=== PATIENT | female | born 1960 | race Caucasian/White ===

== ENCOUNTER 2020-06-25 10:34 | Emergency (ER) | payer BC ==
[2020-06-25] MEDS ORDERED: Sodium Chloride 0.9% 10 ML Syringe FLUSH PRN (10:44)
[2020-06-25] MEDS ORDERED: Sodium Chloride 0.9% 2.5 ML Syringe FLUSH PRN (10:44)
[2020-06-25] MEDS ORDERED: Aspirin 81 MG Tab.Chew PO ONE (10:50)
--- NOTE | 2020-06-25 10:52 | EDM.PDOC ---
ED HPI GENERAL MEDICAL PROBLEM - General Chief Complaint: Chest Pain Stated Complaint: CHEST PAIN Time Seen by Provider: 06/25/20 10:44 Source of Information: Reports: Patient History Limitations: Reports: No Limitations - History of Present Illness INITIAL COMMENTS - FREE TEXT/NARRATIVE: 59-year-old female past medical history migraine headaches presents for chest pain. Patient notes that over the last couple of months that she has felt generalized fatigue, and on and off migraine headache. She has had this worked up by her primary including a negative MRI of the head. 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 The pain is constant and mildly worse with deep breathing. No associated shortness of breath, nausea, vomiting, abdominal pain, lower extremity pain, swelling, redness. Family history of father who at 42 from cardiac condition. No personal history of cardiac problems. Had a negative stress test but that was over a year ago. chest Pain Score (Numeric/FACES): 8 - Related Data Allergies Allergy/AdvReac Type Severity Reaction Status Date / Time Dairy Products Allergy Abdominal Verified 06/25/20 11:06 Pain egg Allergy Abdominal Verified 06/25/20 11:06 Pain gluten Allergy Abdominal Verified 06/25/20 11:06 Pain legumes Allergy Abdominal Verified 06/25/20 11:06 Pain soy Allergy Abdominal Verified 06/25/20 11:06 Pain sunflower seed Allergy Abdominal Verified 06/25/20 11:06 Pain wheat Allergy Abdominal Verified 06/25/20 11:06 Pain pain meds/narcotics/muscle Allergy Hives Uncoded 06/25/20 11:06 reaxants Home Meds: Home Meds Biodentical Hormones 1 tab VAG DAILY 06/25/20 [History] Compound Thyroid 06/25/20 [History] Cyanocobalamin (Vitamin B12) [Vitamin B12] 0 mcg IM ASDIRECTED 06/25/20 [History] ED ROS GENERAL - Review of Systems Review Of Systems: Comprehensive ROS is negative, except as noted in HPI. ED EXAM, GENERAL - Physical Exam Exam: See Below Exam Limited By: No Limitations General Appearance: Alert, WD/WN, No Apparent Distress Nose: Normal Inspection Throat/Mouth: Normal Voice, No Airway Compromise Head: Atraumatic, Normocephalic Neck: Normal Inspection Respiratory/Chest: No Respiratory Distress, Lungs Clear, Normal Breath Sounds, No Accessory Muscle Use Cardiovascular: Normal Peripheral Pulses, Regular Rate, Rhythm, No Edema Extremities: Normal Inspection Neurological: Alert, Normal Gait Psychiatric: Normal Affect, Normal Mood, Anxious Skin Exam: Warm, Dry, Intact, Normal Color #1 Interpretation EKG Date: 06/25/20 Time: 10:38 Rhythm: NSR Rate (Beats/Min): 69 [place]: Normal P-Wave: Present QRS: Normal ST-T: Normal QT: Normal OK/PQ Interval: 176 Comparison: NA - No Prior EKG Course - Vital Signs Last Recorded V/S: Last Vital Signs Temp 96.8 F L 06/25/20 10:45 Pulse 68 06/25/20 13:40 Resp 17 06/25/20 13:40 BP 121/55 L 06/25/20 13:40 Pulse Ox 96 06/25/20 13:40 - Orders/Labs/Meds Orders: Active Orders 24 hr Category Date Time Status Cardiac Monitoring [RC] . DIRECTED Care 06/25/20 10:45 Active EKG Documentation Completion [RC] STAT Care 06/25/20 10:44 Active Pulse Oximetry [RC] ASDIRECTED Care 06/25/20 10:45 Active CORONAVIRUS COVID-19 PCR PHL Stat Lab 06/25/20 12:36 Received Sodium Chloride 0.9% [Saline Flush] Med 06/25/20 10:44 Active 10 ml FLUSH ASDIRECTED PRN Sodium Chloride 0.9% [Saline Flush] Med 06/25/20 10:44 Active 2.5 ml FLUSH ASDIRECTED PRN Saline Lock Insert [OM.PC] Stat Oth 06/25/20 10:44 Ordered Medication Orders Sodium Chloride (Saline Flush) 10 ml FLUSH ASDIRECTED PRN PRN Reason: Keep Vein Open Last Admin: 06/25/20 11:07 Dose: 10 ml Documented by: DEDRA Sodium Chloride (Saline Flush) 2.5 ml FLUSH ASDIRECTED PRN PRN Reason: Keep Vein Open Last Admin: 06/25/20 11:07 Dose: 2.5 ml Documented by: DEDRA Labs: Laboratory Tests 06/25/20 06/25/20 06/25/20 Range/Units 10:40 10:40 10:40 WBC 7.68 (4.0-11.0) K/uL RBC 5.11 (4.30-5.90) M/uL Hgb 15.5 (12.0-16.0) g/dL Hct 47.3 H (36.0-46.0) % MCV 92.6 (80.0-98.0) fL MCH 30.3 (27.0-32.0) pg MCHC 32.8 (31.0-37.0) g/dL RDW Std Deviation 45.7 (28.0-62.0) fl RDW Coeff of Jia 13 (11.0-15.0) % Plt Count 233 (150-400) K/uL MPV 10.60 (7.40-12.00) fL Neut % (Auto) 69.5 (48.0-80.0) % Lymph % (Auto) 24.3 (16.0-40.0) % [place] % (Auto) 3.6 (0.0-15.0) % Eos % (Auto) 2.2 (0.0-7.0) % Baso % (Auto) 0.4 (0.0-1.5) % Neut # (Auto) 5.3 (1.4-5.7) K/uL Lymph # (Auto) 1.9 (0.6-2.4) K/uL [place] # (Auto) 0.3 (0.0-0.8) K/uL Eos # (Auto) 0.2 (0.0-0.7) K/uL Baso # (Auto) 0.0 (0.0-0.1) K/uL Nucleated RBC % 0.0 /100WBC Nucleated RBCs # 0 K/uL INR 1.02 APTT 24.0 (18.6-31.3) SEC D-Dimer, Quantitative 0.46 (0.0-0.50) mg/L FEU Sodium 136 (136-145) mmol/L Potassium 3.4 L (3.5-5.1) mmol/L Chloride 102 (98-107) mmol/L Carbon Dioxide 24.4 (21.0-32.0) mmol/L BUN 12 (7.0-18.0) mg/dL Creatinine 0.9 (0.6-1.0) mg/dL Est Cr Clr Drug Dosing 57.40 mL/min Estimated GFR (MDRD) > 60.0 ml/min Glucose 112 H (74-106) mg/dL Calcium 8.9 (8.5-10.1) mg/dL Total Bilirubin 0.6 (0.2-1.0) mg/dL AST 20 (15-37) IU/L ALT 35 (14-63) IU/L Alkaline Phosphatase 103 (46-116) U/L Troponin I < 0.050 (0.000-0.056) ng/mL B-Natriuretic Peptide (<100) PG/ML Total Protein 7.4 (6.4-8.2) g/dL Albumin 4.0 (3.4-5.0) g/dL Globulin 3.4 (2.6-4.0) g/dL Albumin/Globulin Ratio 1.2 (0.9-1.6) SARS CoV-2 RNA Rapid TIMBO (NEGATIVE) 06/25/20 06/25/20 06/25/20 Range/Units 10:40 12:36 13:40 WBC (4.0-11.0) K/uL RBC (4.30-5.90) M/uL Hgb (12.0-16.0) g/dL Hct (36.0-46.0) % MCV (80.0-98.0) fL MCH (27.0-32.0) pg MCHC (31.0-37.0) g/dL RDW Std Deviation (28.0-62.0) fl RDW Coeff of Jia (11.0-15.0) % Plt Count (150-400) K/uL MPV (7.40-12.00) fL Neut % (Auto) (48.0-80.0) % Lymph % (Auto) (16.0-40.0) % Linn % (Auto) (0.0-15.0) % Eos % (Auto) (0.0-7.0) % Baso % (Auto) (0.0-1.5) % Neut # (Auto) (1.4-5.7) K/uL Lymph # (Auto) (0.6-2.4) K/uL Linn # (Auto) (0.0-0.8) K/uL Eos # (Auto) (0.0-0.7) K/uL Baso # (Auto) (0.0-0.1) K/uL Nucleated RBC % /100WBC Nucleated RBCs # K/uL INR APTT (18.6-31.3) SEC D-Dimer, Quantitative (0.0-0.50) mg/L FEU Sodium (136-145) mmol/L Potassium (3.5-5.1) mmol/L Chloride (98-107) mmol/L Carbon Dioxide (21.0-32.0) mmol/L BUN (7.0-18.0) mg/dL Creatinine (0.6-1.0) mg/dL Est Cr Clr Drug Dosing mL/min Estimated GFR (MDRD) ml/min Glucose (74-106) mg/dL Calcium (8.5-10.1) mg/dL Total Bilirubin (0.2-1.0) mg/dL AST (15-37) IU/L ALT (14-63) IU/L Alkaline Phosphatase (46-116) U/L Troponin I < 0.050 (0.000-0.056) ng/mL B-Natriuretic Peptide 26 (<100) PG/ML Total Protein (6.4-8.2) g/dL Albumin (3.4-5.0) g/dL Globulin (2.6-4.0) g/dL Albumin/Globulin Ratio (0.9-1.6) SARS CoV-2 RNA Rapid TIMBO NEGATIVE (NEGATIVE) Meds: Medications Generic Name Dose Route Start Last Admin Trade Name Freq PRN Reason Stop Dose Admin Sodium Chloride 10 ml 06/25/20 10:44 06/25/20 11:07 Saline Flush FLUSH 10 ml ASDIRECTED PRN Administration Keep Vein Open Sodium Chloride 2.5 ml 06/25/20 10:44 06/25/20 11:07 Saline Flush FLUSH 2.5 ml ASDIRECTED PRN Administration Keep Vein Open Discontinued Medications Generic Name Dose Route Start Last Admin Trade Name Freq PRN Reason Stop Dose Admin Aspirin 324 mg 06/25/20 10:50 06/25/20 11:06 Aspirin PO 06/25/20 10:51 324 mg ONETIME ONE Administration - Re-Assessments/Exams Free Text/Narrative Re-Assessment/Exam: 06/25/20 10:53 Patient well-appearing with normal vital signs, will get cardiac work-up including D-dimer testing. EKG is nonischemic and not concerning. Will also get chest x-ray. We will follow up results and disposition accordingly. Since patient's pain did start this morning, will get two troponin rule out. 06/25/20 11:10 HEART score pending troponin = 3 06/25/20 12:04 Initial set of labs all unremarkable including D-dimer and initial troponin. Second troponin ordered for 1340. 06/25/20 12:10 Patient does note she is feeling better. 06/25/20 13:22 Patient's COVID-19 testing is negative, will follow up repeat troponin and disposition accordingly. 06/25/20 14:18 Patient's repeat troponin is negative. She has a low heart score. She is low risk. Will discharge patient with primary care follow-up, return precautions discussed at length. Departure - Departure Time of Disposition: 14:18 Disposition: Home, Self-Care 01 Condition: Good Clinical Impression: Chest pain Qualifiers: Chest pain type: other chest pain Qualified Code(s): R07.89 - Other chest pain; R07.8 - Other chest pain - Discharge Information Instructions: Nonspecific Chest Pain, Adult Referrals: Marbin Diaz MD [Primary Care Provider] - Forms: ED Department Discharge Additional Instructions: Your labs and imaging have all been unremarkable. Your COVID-19 testing is negative. We did 2 times cardiac enzyme testing which was both negative for signs of damage to heart muscle. It is recommended for you to follow-up with your primary care provider or a inspector assembly for further work-up. If you have further episodes of chest pain, difficulty breathing, or any new or concerning symptom development, you are always welcome and encouraged to come back to the emergency department for reassessment. The following information is given to patients seen in the emergency department who are being discharged to home. This information is to outline your options for follow-up care. We provide all patients seen in our emergency department with a follow-up referral. The need for follow-up, as well as the timing and circumstances, are variable depending upon the specifics of your emergency department visit. If you don't have a primary care physician on staff, we will provide you with a referral. We always advise you to contact your personal physician following an emergency department visit to inform them of the circumstance of the visit and for follow-up with them and/or the need for any referrals to a consulting specialist. The emergency department will also refer you to a specialist when appropriate. This referral assures that you have the opportunity for follow-up care with a specialist. All of these measure are taken in an effort to provide you with optimal care, which includes your follow-up. Under all circumstances we always encourage you to contact your private physician who remains a resource for coordinating your care. When calling for follow-up care, please make the office aware that this follow-up is from your recent emergency room visit. If for any reason you are refused follow-up, please contact the [facility] Emergency Department at and asked to speak to the emergency department charge nurse. Please follow up with your primary care physician. If you do not have a primary care physician, see below: [facility] [address] [place] [id number] [facility] [address] [place] [phone] Cardiology: [facility] [address] [place] [id number] Sepsis Event Note (ED) - Focused Exam Vital Signs: Vital Signs Temp Pulse Resp BP Pulse Ox 06/25/20 13:40 68 17 121/55 L 96 06/25/20 12:10 63 17 128/72 98 06/25/20 11:40 62 18 123/70 94 L 06/25/20 10:45 96.8 F L 69 18 158/88 H 100 - My Orders Last 24 Hours: My Active Orders 06/25/20 10:44 EKG Documentation Completion [RC] STAT Sodium Chloride 0.9% [Saline Flush] 10 ml FLUSH ASDIRECTED PRN Sodium Chloride 0.9% [Saline Flush] 2.5 ml FLUSH ASDIRECTED PRN Saline Lock Insert [OM.PC] Stat 06/25/20 10:45 Cardiac Monitoring [RC] . DIRECTED Pulse Oximetry [RC] ASDIRECTED 06/25/20 12:36 CORONAVIRUS COVID-19 PCR PHL Stat - Assessment/Plan Last 24 Hours: My Active Orders 06/25/20 10:44 EKG Documentation Completion [RC] STAT Sodium Chloride 0.9% [Saline Flush] 10 ml FLUSH ASDIRECTED PRN Sodium Chloride 0.9% [Saline Flush] 2.5 ml FLUSH ASDIRECTED PRN Saline Lock Insert [OM.PC] Stat 06/25/20 10:45 Cardiac Monitoring [RC] . DIRECTED Pulse Oximetry [RC] ASDIRECTED 06/25/20 12:36 CORONAVIRUS COVID-19 PCR PHL Stat
[2020-06-25 11:43] LABS: BLOOD UREA NITROGEN,BUN 12 mg/dL (7.0-18.0); CARBON DIOXIDE,CO2 24.4 mmol/L (21.0-32.0); CHLORIDE,CL 102 mmol/L (98-107); GLUCOSE RANDOM 112 mg/dL (74-106); POTASSIUM,K 3.4 mmol/L (3.5-5.1); SODIUM,NA 136 mmol/L (136-145)
--- NOTE | 2020-06-25 11:49 | CR ---
INDICATION: Chest pain COMPARISON: May 21, 2020 TECHNIQUE: Portable AP upright sitting view study FINDINGS: TUBES AND LINES: None. HEART AND MEDIASTINUM: The heart size is normal. The mediastinal contour appears normal for patient age.Mild tortuosity of the thoracic aorta similar in appearance to the prior study LUNGS AND PLEURAL SPACES: The lungs appear normal.The pleural spaces are unremarkable. OSSEOUS STRUCTURES: Age-appropriate appearance. No acute focal finding. IMPRESSION: No evidence of active pulmonary disease. Dictated by Karlo Coon MD @ Jun 25 2020 11:46AM Signed by Dr. Karlo Coon @ Jun 25 2020 11:47AM
== END 2020-06-25 14:25 | disposition home or self-care (01) ==
LOC: MW.ED 10:34
DX: R07.89 Other chest pain (principal); Z20.828 Contact with and (suspected) exposure to other viral communicable diseases; Z91.018 Allergy to other foods; Z88.8 Allergy status to other drugs, medicaments and biological substances; Z91.012 Allergy to eggs; Z91.011 Allergy to milk products
CPT/HCPCS: 36415; 71045; 80053; 83880; 84484; 85025; 85379; 85610; 85730; 87635; 93005; 99285; A9270; U0002

== ENCOUNTER 2020-08-30 03:12 | Emergency (ER) | payer BC ==
[2020-08-30] MEDS ORDERED: Sodium Chloride 0.9% 10 ML Syringe FLUSH PRN (03:34)
[2020-08-30] MEDS ORDERED: Sodium Chloride 0.9% 2.5 ML Syringe FLUSH PRN (03:34)
--- NOTE | 2020-08-30 03:40 | EDM.PDOC ---
ED HPI GENERAL MEDICAL PROBLEM - General Chief Complaint: Chest Pain Stated Complaint: CHEST PAIN Time Seen by Provider: 08/30/20 03:28 - History of Present Illness INITIAL COMMENTS - FREE TEXT/NARRATIVE: History of present illness:[] Patient was brought because of dyspnea cough diaphoresis and lightheadedness. She felt like she would pass out. The patient was undergoing sleep apnea testing. During the night she had twice gotten up to go to the bathroom and awakened about 3 times tonight with paroxysmal cough. She went for the third time to the bathroom walking about 15 feet to the restroom and when she got back she said she was lightheaded. It was noted by the staff of the sleep apnea lab that she was diaphoretic. She felt like she was short of breath and had some chest pressure. She has had chest pressure off and on recently and over the last 2 months has had a work-up initiated by Dr. Henry. This is the fourth similar episode in three months and she has been told she needs a pacemaker. She has been referred to an electrical prospecting operator in [place] but has not seen them yet. Echocardiogram in June was essentially normal. 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 There is mention of a three second pause and some high degree AVB. The patient has had syncopal episodes in the past but more than a year ago and only when associated with nausea and vomiting or severe pain. Review of systems: As per history of present illness and below otherwise all systems reviewed and negative. Past medical history: As per history of present illness and as reviewed below otherwise noncontributory. Surgical history: As per history of present illness and as reviewed below otherwise noncontributory. Social history: No reported history of drug or alcohol abuse. Family history: As per history of present illness and as reviewed below otherwise noncontributory. Physical exam: Constitutional - well developed, well-nourished and in no acute distress HEENT - normocephalic, no evidence of trauma - external nose and mouth normal - no mass in neck and no JVD - mucosae moist EYES - full EOM, PERRL, no icterus - no evidence of inflammation, injection, or drainage Respiratory - no respiratory distress, equal bilateral expansion, lungs clear to auscultation and no abnormal lung sounds Cardiovascular - Regular Rhythm with S1 and S2 appreciated and no murmur, gallop or rub. GI - abdomen soft without distension or organomegaly - normal bowel sounds - no guard or rebound Musculoskeletal no gross deformity of long bones or joints - no tenderness, swelling or edema Neurologic - Alert and oriented times four - CN II-XII grossly intact - motor sensory and coordination symmetrically normal Psychiatric - appropriate mood and affect with normal thought content Hematologic - No petechiae or purpura - mucosa appropriate color and sclera not pale - normal nail bed color and refill Integument - no rash or evidence of trauma - normal turgor Diagnostics: [] Therapeutics: [] Impression: [] Plan: [] Definitive disposition and diagnosis as appropriate pending reevaluation and review of above. chest discomfort Pain Score (Numeric/FACES): 4 - Related Data Allergies Allergy/AdvReac Type Severity Reaction Status Date / Time Dairy Products Allergy Abdominal Verified 08/30/20 03:24 Pain egg Allergy Abdominal Verified 08/30/20 03:24 Pain gluten Allergy Abdominal Verified 08/30/20 03:24 Pain legumes Allergy Abdominal Verified 08/30/20 03:24 Pain soy Allergy Abdominal Verified 08/30/20 03:24 Pain sunflower seed Allergy Abdominal Verified 08/30/20 03:24 Pain wheat Allergy Abdominal Verified 08/30/20 03:24 Pain pain meds/narcotics/muscle Allergy Hives Uncoded 08/30/20 03:24 reaxants Home Meds: Home Meds Biodentical Hormones 1 tab VAG DAILY 06/25/20 [History] Compound Thyroid 1 tab PO DAILY 06/25/20 [History] Cyanocobalamin (Vitamin B12) [Vitamin B12] 1 injection IM ASDIRECTED 06/25/20 [History] ED ROS GENERAL - Review of Systems Review Of Systems: Comprehensive ROS is negative, except as noted in HPI. ED EXAM, GENERAL - Physical Exam Exam: See Below Free Text/Narrative:: My physical exam is in the HPI #1 Interpretation EKG Interpretation Comments: EKG done at 3:13 AM sinus rhythm with a heart rate of 69 MI 186 axis of -9 QT of [address] and T. Compared to 06/25/2020 no change impression normal Course - Vital Signs Text/Narrative:: tests have returned unremarkable. The patient wants to be discharged since he has had 4 episodes now. Her co founder and chairman said she needed to see an electrical prospecting operator but it is not emergent. The patient feels normal for quite some time in the emergency department. 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 Last Recorded V/S: Last Vital Signs Temp 36.5 C 08/30/20 03:15 Pulse 69 08/30/20 05:12 Resp 14 08/30/20 05:12 BP 131/80 08/30/20 05:12 Pulse Ox 96 08/30/20 05:12 - Orders/Labs/Meds Orders: Active Orders 24 hr Category Date Time Status Cardiac Monitoring [RC] . DIRECTED Care 08/30/20 03:34 Active EKG Documentation Completion [RC] AM Care 08/30/20 03:34 Active Sodium Chloride 0.9% [Saline Flush] Med 08/30/20 03:34 Active 10 ml FLUSH ASDIRECTED PRN Sodium Chloride 0.9% [Saline Flush] Med 08/30/20 03:34 Active 2.5 ml FLUSH ASDIRECTED PRN Saline Lock Insert [OM.PC] Stat Oth 08/30/20 03:35 Ordered Medication Orders Sodium Chloride (Saline Flush) 10 ml FLUSH ASDIRECTED PRN PRN Reason: Keep Vein Open Sodium Chloride (Saline Flush) 2.5 ml FLUSH ASDIRECTED PRN PRN Reason: Keep Vein Open Labs: Laboratory Tests 08/30/20 08/30/20 08/30/20 Range/Units 03:20 03:20 05:05 WBC 6.51 (4.0-11.0) K/uL RBC 5.08 (4.30-5.90) M/uL Hgb 15.6 (12.0-16.0) g/dL Hct 47.4 H (36.0-46.0) % MCV 93.3 (80.0-98.0) fL MCH 30.7 (27.0-32.0) pg MCHC 32.9 (31.0-37.0) g/dL RDW Std Deviation 45.4 (28.0-62.0) fl RDW Coeff of Jia 13 (11.0-15.0) % Plt Count 213 (150-400) K/uL MPV 11.10 (7.40-12.00) fL Neut % (Auto) 53.0 (48.0-80.0) % Lymph % (Auto) 33.3 (16.0-40.0) % [place] % (Auto) 7.1 (0.0-15.0) % Eos % (Auto) 6.0 (0.0-7.0) % Baso % (Auto) 0.6 (0.0-1.5) % Neut # (Auto) 3.5 (1.4-5.7) K/uL Lymph # (Auto) 2.2 (0.6-2.4) K/uL [place] # (Auto) 0.5 (0.0-0.8) K/uL Eos # (Auto) 0.4 (0.0-0.7) K/uL Baso # (Auto) 0.0 (0.0-0.1) K/uL Nucleated RBC % 0.0 /100WBC Nucleated RBCs # 0 K/uL Sodium 143 (136-145) mmol/L Potassium 4.3 (3.5-5.1) mmol/L Chloride 107 (98-107) mmol/L Carbon Dioxide 24.9 (21.0-32.0) mmol/L BUN 15 (7.0-18.0) mg/dL Creatinine 0.9 (0.6-1.0) mg/dL Est Cr Clr Drug Dosing TNP Estimated GFR (MDRD) > 60.0 ml/min Glucose 108 H (74-106) mg/dL Calcium 9.0 (8.5-10.1) mg/dL Magnesium 2.2 (1.8-2.4) mg/dL Total Bilirubin 0.5 (0.2-1.0) mg/dL AST 26 (15-37) IU/L ALT 37 (14-63) IU/L Alkaline Phosphatase 90 (46-116) U/L Troponin I < 0.050 (0.000-0.056) ng/mL Total Protein 6.9 (6.4-8.2) g/dL Albumin 3.7 (3.4-5.0) g/dL Globulin 3.2 (2.6-4.0) g/dL Albumin/Globulin Ratio 1.2 (0.9-1.6) SARS-CoV-2 RNA (TIMBO) NEGATIVE (NEGATIVE) Meds: Medications Generic Name Dose Route Start Last Admin Trade Name Bozena PRN Reason Stop Dose Admin Sodium Chloride 10 ml 08/30/20 03:34 Saline Flush FLUSH ASDIRECTED PRN Keep Vein Open Sodium Chloride 2.5 ml 08/30/20 03:34 Saline Flush FLUSH ASDIRECTED PRN Keep Vein Open Departure - Departure Time of Disposition: 06:15 Disposition: Home, Self-Care 01 Condition: Good Clinical Impression: Near syncope, Diaphoresis, Dyspnea Chest pain Qualifiers: Chest pain type: other chest pain Qualified Code(s): R07.89 - Other chest pain - Discharge Information Instructions: Shortness of Breath, Adult, [id number], Nonspecific Chest Pain, Adult, Shortness of Breath, Adult Referrals: PCP,None [Primary Care Provider] - Matilda Regalado MD [Physician] - Forms: ED Department Discharge Additional Instructions: [facility] - cardiology [address] [place] [id number] The following information is given to patients seen in the emergency department who are being discharged to home. This information is to outline your options for follow-up care. We provide all patients seen in our emergency department with a follow-up referral. The need for follow-up, as well as the timing and circumstances, are variable depending upon the specifics of your emergency department visit. If you don't have a primary care physician on staff, we will provide you with a referral. We always advise you to contact your personal physician following an emergency department visit to inform them of the circumstance of the visit and for follow-up with them and/or the need for any referrals to a consulting specialist. The emergency department will also refer you to a specialist when appropriate. This referral assures that you have the opportunity for follow-up care with a specialist. All of these measure are taken in an effort to provide you with optimal care, which includes your follow-up. Under all circumstances we always encourage you to contact your private physician who remains a resource for coordinating your care. When calling for follow-up care, please make the office aware that this follow-up is from your [facility] emergency room visit. If for any reason you are refused follow-up, please contact the [facility] Emergency Department at and asked to speak to the emergency department charge nurse. Sepsis Event Note (ED) - Evaluation Sepsis Screening Result: No Definite Risk - Focused Exam Vital Signs: Vital Signs Temp Pulse Resp BP Pulse Ox 08/30/20 05:12 69 14 131/80 96 08/30/20 04:00 71 14 134/85 95 08/30/20 03:15 36.5 C 60 18 169/94 H 97 - My Orders Last 24 Hours: My Active Orders 08/30/20 03:34 Cardiac Monitoring [RC] . DIRECTED EKG Documentation Completion [RC] AM Sodium Chloride 0.9% [Saline Flush] 10 ml FLUSH ASDIRECTED PRN Sodium Chloride 0.9% [Saline Flush] 2.5 ml FLUSH ASDIRECTED PRN 08/30/20 03:35 Saline Lock Insert [OM.PC] Stat - Assessment/Plan Last 24 Hours: My Active Orders 08/30/20 03:34 Cardiac Monitoring [RC] . DIRECTED EKG Documentation Completion [RC] AM Sodium Chloride 0.9% [Saline Flush] 10 ml FLUSH ASDIRECTED PRN Sodium Chloride 0.9% [Saline Flush] 2.5 ml FLUSH ASDIRECTED PRN 08/30/20 03:35 Saline Lock Insert [OM.PC] Stat
[2020-08-30 04:00] LABS: BLOOD UREA NITROGEN,BUN 15 mg/dL (7.0-18.0); CARBON DIOXIDE,CO2 24.9 mmol/L (21.0-32.0); CHLORIDE,CL 107 mmol/L (98-107); GLUCOSE RANDOM 108 mg/dL (74-106); POTASSIUM,K 4.3 mmol/L (3.5-5.1); SODIUM,NA 143 mmol/L (136-145)
--- NOTE | 2020-08-30 05:56 | CR ---
Indication: Chest pain and diaphoresis. Technique: Chest 1 view Comparison: Chest x-ray 06/25/2020 Findings/Impression: Cardiovascular and mediastinum: Normal heart size with mild aortic tortuosity. Lungs and pleural space: Lungs are clear. No sign of infiltrate or mass. No sign of pleural effusion. No pneumothorax. Bones and soft tissues: Left glenohumeral osteoarthritis. Dictated by Michael Cid MD @ Aug 30 2020 5:53AM Signed by Dr. Michael Cid @ Aug 30 2020 5:54AM
== END 2020-08-30 06:30 | disposition home or self-care (01) ==
LOC: MW.ED 03:12
DX: R07.89 Other chest pain (principal); R55 Syncope and collapse; R06.02 Shortness of breath; R61 Generalized hyperhidrosis; Z91.048 Other nonmedicinal substance allergy status; Z91.012 Allergy to eggs; Z91.018 Allergy to other foods; Z20.822 Contact with and (suspected) exposure to COVID-19
CPT/HCPCS: 36415; 71045; 71045-26; 80053; 83735; 84484; 85025; 93005; 93010; 99283; 99285-25; U0002

== ENCOUNTER 2021-01-23 07:53 | Day surgery (SDC) | payer BC ==
[~2021-01-23 07:53] MED LIST: Lactated Ringers 1,000 ML IV SCH; Lidocaine 2% 5 ML SDV ONE; Midazolam 1 MG/ML 2 ML SDV ONE; Propofol 200 MG/20 ML SDV ONE; fentaNYL 100 MCG/2 ML SDV ONE
[2021-01-23] MEDS ORDERED: Ondansetron 4 MG/2 ML SDV IVPUSH PRN (09:34)
[2021-01-23] MEDS ORDERED: Albuterol 0.083% 2.5 MG/3 ML Neb Soln NEB PRN (09:34)
[2021-01-23] MEDS ORDERED: Metoclopramide 10 MG/2 ML SDV IVPUSH PRN (09:34)
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
[2021-01-23] MEDS ORDERED: Dexamethasone 4 MG/ML 5 ML MDV ONE (09:41)
[2021-01-23] MEDS ORDERED: Ondansetron 4 MG/2 ML SDV ONE (09:41)
[2021-01-23] MEDS ORDERED: Metoclopramide 10 MG/2 ML SDV ONE (09:41)
--- NOTE | 2021-01-23 10:53 | PCM.OPNOTE ---
- General Post-Op/Procedure Note Date of Surgery/Procedure: 01/23/21 Operative Procedure(s): EGD with biopsies. Colonoscopy with polypectomy Findings: Gastritis Colon polyp dictation number [id number] Pre Op Diagnosis: Black stools. Abdominal pain Post-Op Diagnosis: Gastritis. Colon polyp Primary Surgeon: Marin Mcrae Pathology: Colon polyp EGD Complications: None Condition: Good
--- NOTE | 2021-01-23 11:00 | PCM.POSTAN ---
POST ANESTHESIA ASSESSMENT - MENTAL STATUS Mental Status: Alert, Oriented - VITAL SIGNS Vital Signs: Last Vital Signs Temp 97.5 F 01/23/21 08:09 Pulse 64 01/23/21 10:54 Resp 19 01/23/21 10:54 BP 125/80 01/23/21 10:54 Pulse Ox 99 01/23/21 10:54 - RESPIRATORY Respiratory Status: Respiratory Rate WNL, Airway Patent, O2 Saturation Stable - CARDIOVASCULAR CV Status: Pulse Rate WNL, Blood Pressure Stable - GASTROINTESTINAL GI Status: No Symptoms - POST OP HYDRATION Hydration Status: Adequate & Stable
--- NOTE | 2021-01-23 11:01 | PCM48HPAN ---
Post Anesthesia Note - EVALUATION WITHIN 48HRS OF ANESTHETIC Vital Signs in Normal Range: Yes Patient Participated in Evaluation: Yes Respiratory Function Stable: Yes Airway Patent: Yes Cardiovascular Function Stable: Yes Hydration Status Stable: Yes Pain Control Satisfactory: Yes Nausea and Vomiting Control Satisfactory: Yes Mental Status Recovered: Yes Vital Signs: Last Vital Signs Temp 97.5 F 01/23/21 08:09 Pulse 64 01/23/21 10:54 Resp 19 01/23/21 10:54 BP 125/80 01/23/21 10:54 Pulse Ox 99 01/23/21 10:54
--- NOTE | 2021-01-24 07:23 | OR ---
SURGEON: CHARBEL GODWIN MD DATE OF PROCEDURE: 01/23/2021 PREOPERATIVE DIAGNOSES: 1. Black stools. 2. Abdominal pain. 3. Nausea. POSTOPERATIVE DIAGNOSES: 1. Gastritis. 2. Colon polyp. PROCEDURES PERFORMED: 1. Colonoscopy with cold biopsy polypectomy. 2. Esophagogastroduodenoscopy with biopsies. PRIMARY SURGEON: Charbel Godwin MD ANESTHESIA: With the anesthesiologist. EXTENT OF THE EGD: To at least the second part of the duodenum. EXTENT OF THE COLONOSCOPY: To the cecum. BOWEL PREP: Very good. LIMITATIONS: None. REASON FOR PROCEDURE: The patient is a pleasant 60-year-old female who says she had some dark stools that appeared after taking some pain medicines. She said in the past, she was taking some pain medicines after surgery, she will have dark stools. She says the dark stools have not gone away. The patient was also having some abdominal pain, more in the left abdomen, periumbilical area. She also has longstanding issues with constipation and occasional loose stools. She often has to use laxatives to have bowel movements. The patient also says she has weak stomach acid and takes HCl to supplement it. PROCEDURE IN DETAIL: Physical exam was performed. The major risks and benefits associated with procedure were explained to the patient in detail. The patient verbalized understanding and was in agreement with the same. The patient was connected to the appropriate monitoring devices and IV was started. EKG, pulse oximetry, blood pressure, and capnography were monitored throughout the case. Oxygen and sedation were provided by the anesthesiologist. The patient was placed in left lateral decubitus position. Sedation began. After adequate sedation was achieved, an upper endoscope was advanced under direct visualization in the upper GI tract to look at the anatomy of the mucosa of the esophagus, GE junction, stomach, and at least the second part of the duodenum. Duodenum did appear normal. Scope was withdrawn. Both retrograde and antegrade views of the stomach were done. She has gastritis. Did biopsies of the antrum and pylorus to check for H pylori. Of note, the stomach mucosa did feel more friable. Just a little bit of suctioning did seem to greatly irritate the mucosa. Did do several random biopsies throughout the stomach. The scope was brought up to the GE junction. GE junction was approximately 36 cm from incisors. GE junction had a good squamocolumnar junction and good Z-line. Scope was brought into the stomach. Stomach was deinsufflated. Scope was brought up through the esophagus. Esophagus appeared normal. Scope was completely removed and this part of the procedure was terminated. Gloves and scopes were changed. Now, rectal examination was performed. No rectal masses or polyps were felt. Now, a well-lubricated Olympus colonoscope was entered in the rectum and advanced under direct visualization to the level of the cecum. Did need some external abdominal pressure to get to the cecum, the cecum was intubated. The patient did have some light liquid stools which was suctioned and irrigated out for a great look at the mucosa. The patient did have the beginning of melanosis coli. No diverticulosis was seen. Right in the area about 10 cm, the patient had a small polyp, likely hyperplastic. This was removed with cold biopsy polypectomy. The scope was retroflexed in the rectum. Scope was completely removed and the procedure was terminated. ENDOSCOPIC DIAGNOSES: 1. Gastritis. 2. Small polyp at 10 cm. RECOMMENDATIONS: Followup colonoscopy will depend on pathology, but will likely need another one in five to 10 years, sooner if she develops signs and symptoms such as change in bowel habits or blood in the stool. The patient may consider not taking the acid supplements maybe and trying some PPI to help with her gastritis. The patient will follow up in clinic to go over pathology. WENDY HOWELL /[id number]
== END 2021-01-23 11:31 | disposition home or self-care (01) ==
LOC: MW.SDS 07:53
PROVIDERS: ATTEND Surgery
DX: D12.6 Benign neoplasm of colon, unspecified (principal); K63.89 Other specified diseases of intestine; K29.50 Unspecified chronic gastritis without bleeding; J45.990 Exercise induced bronchospasm; Z91.018 Allergy to other foods; Z91.012 Allergy to eggs; Z91.011 Allergy to milk products; Z79.899 Other long term (current) drug therapy; Z98.890 Other specified postprocedural states
CPT/HCPCS: 00813; 88305; 88342; J1100; J2250; J2405; J2704; J2765; J3010; J7120

== ENCOUNTER 2021-01-29 11:39 | Emergency (ER) | payer BC ==
[2021-01-29] MEDS ORDERED: Bacitracin Oint 1 GM U/D Packet TOP STA (12:14)
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
== END 2021-01-29 12:29 | disposition home or self-care (01) ==
LOC: MW.ED 11:39
DX: T22.211A Burn of second degree of right forearm, initial encounter (principal); Z91.018 Allergy to other foods; Z91.012 Allergy to eggs; Z91.048 Other nonmedicinal substance allergy status; Z91.011 Allergy to milk products; Z88.5 Allergy status to narcotic agent; Z88.6 Allergy status to analgesic agent
CPT/HCPCS: 99282

== ENCOUNTER 2021-06-24 13:44 | Emergency (ER) | payer BC ==
[2021-06-24] MEDS ORDERED: Sodium Chloride 0.9% 10 ML Syringe FLUSH PRN (17:19)
[2021-06-24] MEDS ORDERED: Sodium Chloride 0.9% 2.5 ML Syringe FLUSH PRN (17:19)
[2021-06-24 18:19] LABS: BLOOD UREA NITROGEN,BUN 15 mg/dL (7.0-18.0); CARBON DIOXIDE,CO2 26.2 mmol/L (21.0-32.0); CHLORIDE,CL 103 mmol/L (98-107); GLUCOSE RANDOM 96 mg/dL (74-106); LIPASE 127 U/L (73-393); POTASSIUM,K 3.9 mmol/L (3.5-5.1); SODIUM,NA 137 mmol/L (136-145)
--- NOTE | 2021-06-24 20:38 | CT ---
INDICATION: Right lower quadrant abdomen pain. TECHNIQUE: CT abdomen and pelvis acquired with 100 cc Isovue 370 IV contrast. COMPARISON: 01/10/2021. FINDINGS: Lower chest: Unremarkable. Liver: Unremarkable. Normal in size and attenuation. No suspicious masses. Gallbladder and bile ducts: Unremarkable. No stones or inflammation. No biliary dilatation. Pancreas: Unremarkable. No mass or inflammation. Spleen: Unremarkable. Normal in size. No masses. Adrenal glands: Unremarkable. No nodules. Kidneys: Unremarkable. No suspicious masses, stones, or hydronephrosis. GI tract: Unremarkable. Normal in caliber. No sign of mass or inflammation. Normal appendix. Vasculature: Unremarkable. Mesenteric arteries are patent. Lymph nodes: No lymphadenopathy. Omentum/Peritoneum/Abdominal Wall: Unremarkable. No sign of mass or infiltration. No free air or significant free fluid. Pelvis: Unremarkable. Bones: Unremarkable for age. IMPRESSION: Unremarkable CT of the abdomen and pelvis. No findings to explain right lower quadrant abdomen pain. No changes from the prior exam. Please note that all CT scans at this facility use dose modulation, iterative reconstruction, and/or weight-based dosing when appropriate to reduce radiation dose to as low as reasonably achievable. Dictated by Peyman Gonzlaez MD @ 06/24/2021 8:37:27 PM (Electronically Signed)
[2021-06-24] MEDS ORDERED: Iopamidol 755 MG/ML 500 ML Multipack Bottle IVPUSH STA (20:40)
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
== END 2021-06-24 21:08 | disposition home or self-care (01) ==
LOC: MW.ED 13:44
DX: R10.31 Right lower quadrant pain (principal); E03.9 Hypothyroidism, unspecified; Z79.899 Other long term (current) drug therapy; Z91.012 Allergy to eggs; Z91.018 Allergy to other foods; Z91.011 Allergy to milk products; Z88.5 Allergy status to narcotic agent
CPT/HCPCS: 36415; 74177; 80053; 83690; 85025; 99284; Q9967

== ENCOUNTER 2022-02-16 18:01 | Emergency (ER) | payer BC, OTHER | END 2022-02-16 20:06 | disposition home or self-care (01) | LOC: MW.ED 18:01 | DX: S49.92XA Unspecified injury of left shoulder and upper arm, initial encounter (principal); S19.9XXA Unspecified injury of neck, initial encounter; Z91.012 Allergy to eggs; Z91.011 Allergy to milk products; Z91.018 Allergy to other foods; Z91.048 Other nonmedicinal substance allergy status; X50.0XXA Overexertion from strenuous movement or load, initial encounter | CPT/HCPCS: 72040; 72040-26; 73030-26-LT; 73030-LT; 99283 ==

== ENCOUNTER 2023-11-09 06:55 | Emergency (ER) | payer OTHER, BC ==
[2023-11-09] MEDS: Cyclobenzaprine 10 MG Tab PO ONE (07:37)
[2023-11-09] MEDS: Ibuprofen 600 MG Tab PO ONE (07:38)
== END 2023-11-09 11:03 | disposition home or self-care (01) ==
LOC: MW.ED 06:55
DX: S73.102A Unspecified sprain of left hip, initial encounter (principal); S83.92XA Sprain of unspecified site of left knee, initial encounter; S93.402A Sprain of unspecified ligament of left ankle, initial encounter; Z86.19 Personal history of other infectious and parasitic diseases; Z90.710 Acquired absence of both cervix and uterus; Z79.899 Other long term (current) drug therapy; Z91.018 Allergy to other foods; Z91.012 Allergy to eggs; Z91.011 Allergy to milk products; Z88.5 Allergy status to narcotic agent; Z75.8 Other problems related to medical facilities and other health care; W01.0XXA Fall on same level from slipping, tripping and stumbling without subsequent striking against object, initial encounter
CPT/HCPCS: 73501; 73562; 73610; 73700; 99283; A9270

== ENCOUNTER 2025-04-12 08:27 | Day surgery (SDC) | payer MEDICARE ==
[~2025-04-12 08:27] MED LIST changes: +Albuterol 0.083% 2.5 MG/3 ML Neb Soln NEB PRN; -Lactated Ringers 1,000 ML IV SCH; -Lidocaine 2% 5 ML SDV ONE; -Midazolam 1 MG/ML 2 ML SDV ONE; +Naloxone 0.4 MG/ML SDV IVPUSH PRN; +Ondansetron 4 MG/2 ML SDV IVPUSH PRN; -Propofol 200 MG/20 ML SDV ONE; +Ropivacaine 49.25 ML, Ketorolac 30 MG, EPINEPHrine 0.5 MG, cloNIDine 80 MCG in Sodium C... INJECT SCH; -fentaNYL 100 MCG/2 ML SDV ONE; +fentaNYL 50 MCG/ML SDV IVPUSH PRN
[2025-04-12] MEDS ORDERED: Ondansetron 4 MG/2 ML SDV ONE ×2 (08:29→10:34)
[2025-04-12] MEDS ORDERED: fentaNYL 100 MCG/2 ML SDV ONE (08:29)
[2025-04-12] MEDS ORDERED: Magnesium Sulfate (4.06 MEQ/ML) 5 GM/10 ML SDV ONE (09:05)
[2025-04-12] MEDS ORDERED: propofoL 1,000 MG/100 ML 100 ML ONE (09:06)
[2025-04-12] MEDS: Scopalamine 1mg/3day Transdermal Patch TOP ONE (09:11)
[2025-04-12] MEDS: Lactated Ringers 1,000 ML IV SCH (09:12)
[2025-04-12] MEDS ORDERED: propofoL 500 MG/50 ML 50 ML ONE (10:16)
[2025-04-12] MEDS ORDERED: dexmedeTOMIDine HCl 200 MCG/2 ML SDV ONE (10:16)
[2025-04-12] MEDS ORDERED: Dexamethasone 4 MG/ML 5 ML MDV ONE (10:16)
[2025-04-12] MEDS ORDERED: Ketorolac 30 MG/ML SDV ONE (10:17)
[2025-04-12] MEDS ORDERED: Ketamine HCL/NACL, ISO-OSM 50 MG/5 ML Syringe ONE (10:40)
[2025-04-12] MEDS ORDERED: Ondansetron 4 MG/2 ML SDV IVPUSH PRN (12:53)
[2025-04-12] MEDS ORDERED: Sodium Chloride 0.9% 10 ML Syringe FLUSH PRN (12:53)
[2025-04-12] MEDS ORDERED: Sodium Chloride 0.9% 2.5 ML Syringe FLUSH PRN (12:53)
[2025-04-12 15:15] LABS: BASOPHILS ABSOLUTE AUTO 0.02 K/uL (0.00-0.20); BASOPHILS PERCENT AUTO 0.2 % (0.0-1.0); EOSINOPHILS ABSOLUTE AUTO 0.02 K/uL (0.00-0.45); EOSINOPHILS PERCENT AUTO 0.2 % (0.0-6.0); IMMATURE GRAN ABSOLUTE AUTO 0.03 K/uL (0.00-0.05); IMMATURE GRAN PERCENT AUTO 0.3 % (0.0-0.4); LYMPHOCYTES ABSOLUTE AUTO 0.45 K/uL (1.00-4.80); LYMPHOCYTES PERCENT AUTO 5.2 % (24.0-44.0); MEAN PLATELET VOLUME 10.9 fL (9.4-12.3); MONOCYTES ABSOLUTE AUTO 0.08 K/uL (0.00-0.80); MONOCYTES PERCENT AUTO 0.9 % (0.0-8.0); NEUTROPHILS ABSOLUTE AUTO 8.11 K/uL (1.80-7.70); NEUTROPHILS PERCENT AUTO 93.2 % (41.0-71.0); NRBC ABSOLUTE 0.00 K/uL (0.00-0.02); NRBC PERCENT 0.0 /100WBC (0.0-0.2); PLATELET COUNT,PLT 201 K/uL (150-400); RED BLOOD CELL COUNT 4.41 M/uL (4.10-5.30); WHITE BLOOD CELL COUNT,WBC 8.71 K/uL (3.9-11.3)
[2025-04-12] MEDS: Ketorolac 30 MG/ML SDV IVPUSH SCH (15:39)
[2025-04-12] MEDS: ceFAZolin 2 GM in Water For Injection, Sterile 20 ML IVPUSH ONE (15:40)
[2025-04-12 15:45] LABS: BLOOD UREA NITROGEN,BUN 17.0 mg/dL (7.0-18.0); CARBON DIOXIDE,CO2 27.2 mmol/L (21.0-32.0); CHLORIDE,CL 107.0 mmol/L (98-107); CREATININE 1.0 mg/dL (0.6-1.0); EST CRCL DRUG DOSING (CG) 49.45 mL/min; GLUCOSE RANDOM 129.0 mg/dL (74-106); POTASSIUM,K 4.9 mmol/L (3.5-5.1); SODIUM,NA 142.0 mmol/L (136-145)
[2025-04-12 15:48] LABS: ESTIMATED GFR 63.0 mL/min (>60)
[2025-04-12] MEDS: ceFAZolin 2 GM in Water For Injection, Sterile 20 ML IVPUSH SCH (18:29)
[2025-04-13 06:32] LABS: BLOOD UREA NITROGEN,BUN 15.0 mg/dL (7.0-18.0); CARBON DIOXIDE,CO2 27.3 mmol/L (21.0-32.0); CHLORIDE,CL 104.0 mmol/L (98-107); CREATININE 1.0 mg/dL (0.6-1.0); EST CRCL DRUG DOSING (CG) 49.45 mL/min; GLUCOSE RANDOM 121.0 mg/dL (74-106); POTASSIUM,K 3.9 mmol/L (3.5-5.1); SODIUM,NA 139.0 mmol/L (136-145)
[2025-04-13 06:35] LABS: ESTIMATED GFR 63.0 mL/min (>60)
== END 2025-04-13 14:10 | disposition home or self-care (01) ==
LOC: MW.SDS 08:27 → MW.MS 14:19 → MW.SDS 04-13 14:10
PROVIDERS: ATTEND Orthopaedic Surgery
DX: M17.11 Unilateral primary osteoarthritis, right knee (principal); F32.A Depression, unspecified; I10 Essential (primary) hypertension; E03.9 Hypothyroidism, unspecified; J45.901 Unspecified asthma with (acute) exacerbation; Z88.5 Allergy status to narcotic agent; Z91.012 Allergy to eggs; Z91.040 Latex allergy status; Z91.011 Allergy to milk products; Z88.8 Allergy status to other drugs, medicaments and biological substances; Z79.890 Hormone replacement therapy; Z79.899 Other long term (current) drug therapy
CPT/HCPCS: 0055T; 27447; 36415; 73560; 80048; 83735; 85014; 85018; 85025; 86850; 86900; 86901; 97116; 97162; 97530; A4216; A9270; C1776; J0166; J0665; J0690; J0735; J1100; J1308; J1885; J2003; J2371; J2704; J2765; J2795; J3010; J3475; J7120; 01402; 64447; J2405; J3490

== ENCOUNTER 2025-05-26 02:18 | Emergency (ER) | payer MEDICARE ==
[2025-05-26] MEDS: Ketorolac 30 MG/ML SDV IM ONE (02:38)
[2025-05-26 02:49] LABS: BASOPHILS ABSOLUTE AUTO 0.04 K/uL (0.00-0.20); BASOPHILS PERCENT AUTO 0.6 % (0.0-1.0); EOSINOPHILS ABSOLUTE AUTO 0.39 K/uL (0.00-0.45); EOSINOPHILS PERCENT AUTO 6.1 % (0.0-6.0); IMMATURE GRAN ABSOLUTE AUTO 0.01 K/uL (0.00-0.05); IMMATURE GRAN PERCENT AUTO 0.2 % (0.0-0.4); LYMPHOCYTES ABSOLUTE AUTO 2.15 K/uL (1.00-4.80); LYMPHOCYTES PERCENT AUTO 33.6 % (24.0-44.0); MEAN PLATELET VOLUME 10.3 fL (9.4-12.3); MONOCYTES ABSOLUTE AUTO 0.35 K/uL (0.00-0.80); MONOCYTES PERCENT AUTO 5.5 % (0.0-8.0); NEUTROPHILS ABSOLUTE AUTO 3.46 K/uL (1.80-7.70); NEUTROPHILS PERCENT AUTO 54.0 % (41.0-71.0); NRBC ABSOLUTE 0.00 K/uL (0.00-0.02); NRBC PERCENT 0.0 /100WBC (0.0-0.2); PLATELET COUNT,PLT 235 K/uL (150-400); RED BLOOD CELL COUNT 4.48 M/uL (4.10-5.30); WHITE BLOOD CELL COUNT,WBC 6.40 K/uL (3.9-11.3)
[2025-05-26 03:12] LABS: A/G RATIO 1.6 (0.9-1.6); ALANINE AMINOTRANSFERASE,ALT 46.0 IU/L (14-63); ASPARTATE AMNIOTRANSFERASE,AST 26.0 IU/L (15-37); BILIRUBIN TOTAL 0.5 mg/dL (0.2-1.0); BLOOD UREA NITROGEN,BUN 14.0 mg/dL (7.0-18.0); CARBON DIOXIDE,CO2 23.4 mmol/L (21.0-32.0); CHLORIDE,CL 108.0 mmol/L (98-107); CREATININE 0.8 mg/dL (0.6-1.0); EST CRCL DRUG DOSING (CG) 60.54 mL/min; GLUCOSE RANDOM 104.0 mg/dL (74-106); POTASSIUM,K 4.2 mmol/L (3.5-5.1); PROTEIN TOTAL,TP 6.7 g/dL (6.4-8.2); SODIUM,NA 142.0 mmol/L (136-145)
[2025-05-26 03:18] LABS: ESTIMATED GFR 82.0 mL/min (>60)
== END 2025-05-26 03:35 | disposition home or self-care (01) ==
LOC: MW.ED 02:18
DX: M25.561 Pain in right knee (principal); R03.0 Elevated blood-pressure reading, without diagnosis of hypertension; Z88.8 Allergy status to other drugs, medicaments and biological substances; Z91.0120 Allergy to eggs, unspecified; Z91.0110 Allergy to milk products, unspecified; Z91.018 Allergy to other foods; Z79.899 Other long term (current) drug therapy; Z79.82 Long term (current) use of aspirin; Z90.710 Acquired absence of both cervix and uterus; Z96.651 Presence of right artificial knee joint
CPT/HCPCS: 36415; 73562; 80053; 85025; 85652; 86140; 96372; 99283; A9270; J1885; J8540